=== PATIENT | male | born 1955 | race Two or more races ===

== ENCOUNTER 2021-07-28 11:51 | Emergency (ER) | payer OTHER ==
[~2021-07-28] VITALS: Ht 162.6 cm; Wt 63.5 kg
[2021-07-28 12:04] VITALS: BP 226/144
[2021-07-28] MEDS ORDERED: cloNIDine HCL 0.1 MG TAB PO ONE ×2 (12:15→15:15)
[2021-07-28 13:41] LABS: Basophils # (auto) 0.1 10 ^3/uL (0-0.2); Basophils % (auto) 0.6 % (0.0-2.0); Eosinophils # (auto) 0.1 10 ^3/uL (0-0.8); Eosinophils % (auto) 0.9 % (0.0-7.0); Hematocrit 43.5 % (41.0-53.0); Hemoglobin 15.1 g/dL (13.5-17.5); Lymphocytes # (auto) 1.2 10 ^3/uL (0.4-5.4); Lymphocytes % (auto) 10.6 % (10.0-50.0); Mean Corpuscular Hemoglobin 32.2 pg (28.0-32.0); Mean Corpuscular Hgb Conc. 34.7 g/dL (32.0-36.0); Mean Corpuscular Volume 92.8 fL (80.0-100.0); Monocytes # (auto) 0.5 10 ^3/uL (0-1.3); Monocytes % (auto) 4.7 % (0.0-12.0); Neutrophils # (auto) 9.3 10 ^3/uL (1.6-8.6); Neutrophils % (auto) 83.2 % (37.0-80.0); Red Blood Cells 4.68 10^6/uL (4.5-5.90); Red Cell Distribution Width 14.3 % (11.8-14.3); White Blood Cell 11.2 10^3/uL (4.4-10.8)
[2021-07-28 14:01] LABS: Albumin 3.9 g/dL (3.4-5.0); Anion Gap 9 (5-15); Blood Urea Nitrogen 16 mg/dL (7-18); Calcium 9.2 mg/dL (8.5-10.1); Carbon Dioxide 25 mmol/L (21-32); Chloride 105 mmol/L (98-107); Glucose 113 mg/dL (74-106); Potassium 3.5 mmol/L (3.5-5.1); Sodium 139 mmol/L (136-145)
[2021-07-28 14:06] LABS: Alanine Aminotransferase 25 U/L (16-61); Alkaline Phosphatase 102 U/L (45-117); Aspartate Aminotransferase 18 U/L (15-37); BUN/Creatinine Ratio 12.1; Bilirubin, Total 0.5 mg/dL (0.2-1.0); GFR African American 69 mL/min; GFR Non-African American 57 mL/min; Total Protein 7.8 g/dL (6.4-8.2)
== END 2021-07-28 15:18 | disposition home or self-care (01) ==
LOC: ER 11:51
DX: I16.0 Hypertensive urgency (principal); F17.210 Nicotine dependence, cigarettes, uncomplicated; Z88.0 Allergy status to penicillin
CPT/HCPCS: 36415; 80053; 84484; 85025; 93005

== ENCOUNTER 2025-08-06 10:09 | Emergency (ER) | payer MEDICARE, OTHER ==
[~2025-08-06] VITALS: Ht 167.6 cm; Wt 60.3 kg
--- NOTE | 2025-08-06 10:45 | ECG ---
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
[2025-08-06 10:53] LABS: Hematocrit 44.0 % (41.0-53.0); Hemoglobin 15.6 g/dL (13.5-17.5); Mean Corpuscular Hemoglobin 31.9 pg (28.0-32.0); Mean Corpuscular Volume 90.4 fL (80.0-100.0); Nucleated Red Blood Cells % 0.2 %
[2025-08-06 10:59] LABS: Chloride 104 mmol/L (98-107); Potassium 3.6 mmol/L (3.5-5.1); Sodium 143 mmol/L (136-145)
[2025-08-06 11:00] LABS: Anion Gap 12 (5-15); Calcium 9.8 mg/dL (8.7-10.4); Carbon Dioxide 27 mmol/L (20-31)
[2025-08-06 11:05] LABS: BUN/Creatinine Ratio 10.2 (10.0-20.0); Blood Urea Nitrogen 12 mg/dL (9-23)
[2025-08-06 11:07] LABS: Glucose 107 mg/dL (74-106)
--- NOTE | 2025-08-06 11:16 | DVH ---
EXAM: CT HEAD WITHOUT CONTRAST HISTORY: tia, headache COMPARISON: No comparison studies are available. TECHNIQUE: Noncontrast axial CT images of the head were performed. Sagittal and coronal reformatted i mages were obtained. This CT exam was performed using 1 or more of the following dose reduction techn iques: Automated exposure control, adjustment of the mA and/or kv according to patient size, or the u se of iterative reconstruction techniques. Radiation Dose: CTDI volume is 54.72 mGy. Dose-length product is 967.22 mGy*cm FINDINGS: There is a 7 mm ovoid hyperdense lesion of the left frontal lobe inferomedially (image 27, series 2). No intracranial masses, midline shift, hydrocephalus, or evidence of acute large vessel infarct. Th ere is mild global brain atrophy. There is mild decreased attenuation in the periventricular white m atter. There is a mucous retention cyst in the right maxillary sinus. The bilateral mastoid air cells and middle ear spaces are clear. There may be old bilateral nasal bone fractures. No cranial fractur e or scalp edema. IMPRESSION: 1. 7 mm ovoid hyperdense lesion of the inferomedial aspect of the left frontal lobe likely due to acu te intra-axial hemorrhage, less likely atypical calcification, mass, or aneurysm. Appropriate follow- up may include pre and postcontrast MRI of the brain versus short interval follow-up noncontrast CT s can of the head to establish short term stability. Comparison with any previous CT scan of the head would also be helpful if available. 2. Mild global brain atrophy and chronic ischemic changes without evidence of acute large vessel infa rct. 3. Mild right maxillary sinus disease. Critical findings Critical Result: Acute intracranial hemorrhage Findings discussed with Dr. Grady at 08/06/2025 01:10 PM CDT, and acknowledged receipt and understa nding of the findings.
--- NOTE | 2025-08-06 11:33 | ED.PDOC ---
HPI (NEURO) HPI Comments 70 year old male with PMHx HTN presents to the ED with a chief complaint of LT sided weakness onset 08/04/25. Patient states he began experiencing Lt sided facial drooping 2 days ago around 05:00. Patient's spouse states patient woke up, she noticed Lt sided facial drooping. Patient has no further complaints. Denies chest pain, shortness of breath, dizziness, headache, fever, chills, nausea, vomiting, weakness, numbness/tingling. No other symptoms or modifying factors present at this time. Chief Complaint: Left Sided Weakness Time Seen by MD: 11:15 Reviewed Notes: Medications, Allergies Information Source: Patient, Spouse Mode of Arrival: Ambulatory Severity: Moderate Timing: Days Duration: Since onset Prehospital treatment: None Associated Signs and Symptoms: Other (LT sided facial drooping) Past Medical History PAST MEDICAL HISTORY: HTN Surgical History: Denies all surgeries Family History Family History: Reviewed,noncontributory to illness Social History Smoker: Cigarettes Alcohol: Occasionally Drugs: Denies Drug Use Lives In: Home Constitutional: denies: chills, diaphoresis, fatigue, fever, malaise, sweats, weakness, others EENTM: denies: blurred vision, double vision, ear bleeding, ear discharge, ear drainage, ear pain, ear ringing, eye pain, eye redness, hearing loss, mouth pain, mouth swelling, nasal discharge, nose bleeding, nose congestion, nose pain, photophobia, tearing, throat pain, throat swelling, voice changes, others Respiratory: denies: cough, hemoptysis, orthopnea, SOB at rest, shortness of breath, SOB with excertion, stridor, wheezing, others Cardiovascular: denies: chest pain, dizzy spells, diaphoresis, Dyspnea on exertion, edema, irregular heart beat, left arm pain, lightheadedness, palpitations, PND, syncope, others Gastrointestinal: denies: abdomen distended, abdominal pain, blood streaked bowels, constipated, diarrhea, dysphagia, difficulty swallowing, hematemesis, melena, nausea, poor appetite, poor fluid intake, rectal bleeding, rectal pain, vomiting, others Genitourinary: denies: burning, dysuria, flank pain, frequency, hematuria, incontinence, penile discharge, penile sore, pain, testicle pain, testicle swelling, urgency, others Neurological: reports: others (Lt sided facial drooping); denies: dizziness, fainting, headache, left sided numbness, left sided weakness, numbness, paresthesia, pre-existing deficit, right sided numbness, right sided weakness, seizure, speech problems, tingling, tremors, weakness Musculoskeletal: denies: back pain, gout, joint pain, joint swelling, muscle pain, muscle stiffness, neck pain, others Integumetry: denies: bruises, change in color, change in hair/nails, dryness, laceration, lesions, lumps, rash, wounds, others Allergic/Immunocompromised: denies: Difficulty Healing, Frequent Infections, Hives, Itching, others Hematologic/Lymphatic: denies: anemia, blood clots, easy bleeding, easy bruising, swollen glands, others Endocrine: denies: excessive hunger, excessive sweating, excessive thirst, excessive urination, flushing, intolerance to cold, intolerance to heat, unexplained weight gain, unexplained weight loss, others Psychiatric: denies: anxiety, bipolar disorder, depression, hopeless, panic disorder, schizophrenia, sleepless, suicidal, others All Other Systems: Reviewed and Negative Physical Exam General Appearance: Moderate Distress HEENT: Normal ENT Inspection, Pharynx Normal, TMs Normal Neck: Full Range of Motion, Non-Tender, Normal, Normal Inspection Respiratory: Chest Non-Tender, Lungs Clear, No Accessory Muscle Use, No Respiratory Distress, Normal Breath Sounds Cardiovascular: No Edema, No JVD, No Murmur, No Gallop, Normal Peripheral Pulses, Regular Rate/Rhythm Breast Exam: Deferred Gastrointestinal: No Organomegaly, Non Tender, No Pulsatile Mass, Normal Bowel Sounds, Soft Genitalia: Deferred Pelvic: Deferred Rectal: Deferred Extremities: No calf tenderness, Normal capillary refill, Normal inspection, Normal range of motion, Non-tender, No pedal edema Musculoskeletal : Apperance: Normal Neurologic: Facial Droop Cerebellar Function: Normal Reflexes: Normal Skin: Dry, Normal Color, Warm Peripheral Pulses: 3+ Radial (R), 3+ Radial (L) Lymphatic: No Adenopathy EKG EKG : Pulse Rate (adult): 97 Cardiac Rhythm: NSR Was a procedure done? Was a procedure done?: No Differential Diagnosis (SZ) Seizure: Psychogenic Seizure, Closed Head Injury, CVA/TIA X-Ray, Labs, Meds, VS Vital Signs Date Time Temp Pulse Resp B/P (MAP) Pulse Ox O2 Delivery O2 Flow Rate FiO2 08/06/25 12:33 79 10 95 Room Air* 0 21 08/06/25 12:25 97.3 79 10 125/86 (99) 95 97.3 08/06/25 11:33 97 08/06/25 10:25 97 08/06/25 10:11 98.9 98 18 143/92 97 98.9 Lab Test 08/06/25 13:20 08/06/25 10:29 08/06/25 10:24 Range/Units Urine Color Pending Urine Clarity Pending Urine pH Pending Urine Specific [place] Pending Urine Protein Pending Urine Ketones Pending Urine Blood Pending Urine Nitrite Pending Urine Bilirubin Pending Urine Urobilinogen Pending Urine Leukocyte Esterase Pending Urine RBC Pending Urine Microscopic WBC Pending Urine Squamous Epithelial Cells Pending Urine Bacteria Pending Urine Glucose Pending White Blood Count 8.4 4.4-10.8 10^3/uL Red Blood Count 4.87 4.5-5.90 10^6/uL Hemoglobin 15.6 13.5-17.5 g/dL Hematocrit 44.0 41.0-53.0 % Mean Corpuscular Volume 90.4 80.0-100.0 fL Mean Corpuscular Hemoglobin 31.9 28.0-32.0 pg Mean Corpuscular Hemoglobin Concent 35.3 32.0-36.0 g/dL Red Cell Distribution Width 14.0 11.8-14.3 % Platelet Count 273 140-450 10^3/uL Mean Platelet Volume 8.0 6.9-10.8 fL Neutrophils (%) (Auto) 75.1 37.0-80.0 % Lymphocytes (%) (Auto) 16.0 10.0-50.0 % Monocytes (%) (Auto) 6.2 0.0-12.0 % Eosinophils (%) (Auto) 2.0 0.0-7.0 % Basophils (%) (Auto) 0.7 0.0-2.0 % Neutrophils # (Auto) 6.3 1.6-8.6 10 ^3/uL Lymphocytes # (Auto) 1.3 0.4-5.4 10 ^3/uL Monocytes # (Auto) 0.5 0-1.3 10 ^3/uL Eosinophils # (Auto) 0.2 0-0.8 10 ^3/uL Basophils # (Auto) 0.1 0-0.2 10 ^3/uL Nucleated Red Blood Cells 0.2 % Sodium Level 143 136-145 mmol/L Potassium Level 3.6 3.5-5.1 mmol/L Chloride Level 104 98-107 mmol/L Carbon Dioxide Level 27 20-31 mmol/L Anion Gap 12 5-15 Blood Urea Nitrogen 12 9-23 mg/dL Creatinine 1.18 0.700-1.30 mg/dL Glomerular Filtration Rate Calc 66 >90 mL/min BUN/Creatinine Ratio 10.2 10.0-20.0 Serum Glucose 107 H 74-106 mg/dL Calcium Level 9.8 8.7-10.4 mg/dL Troponin I High Sensitivity 3 L </=54 ng/L POC Glucose 104 70-106 mg/dl [place] [address] Ph: [phone] DIAGNOSTIC IMAGING Diagnostic Imaging Report : [id number] Signed PATIENT: MAREN LEWIS ACCT: [id number] UNIT: [id number] : 1955 LOC: ER ROOM / BED: / AGE / SEX: 70 / M ADM STATUS: REG ER SERVICE 1015 ORDERING PHYSICIAN: ERICK EATON MD PROCEDURE(s): HWOCT - HEAD WITHOUT CONTRAST REASON: tia ORDER NUMBER(s): [id number], ACCESSION NUMBER(s): [id number] EXAM: CT HEAD WITHOUT CONTRAST HISTORY: tia, headache COMPARISON: No comparison studies are available. TECHNIQUE: Noncontrast axial CT images of the head were performed. Sagittal and coronal reformatted images were obtained. This CT exam was performed using 1 or more of the following dose reduction techniques: Automated exposure control, adjustment of the mA and/or kv according to patient size, or the use of iterative reconstruction techniques. Radiation Dose: CTDI volume is 54.72 mGy. Dose-length product is 967.22 mGy*cm FINDINGS: There is a 7 mm ovoid hyperdense lesion of the left frontal lobe inferomedially (image 27, series 2). No intracranial masses, midline shift, hydrocephalus, or evidence of acute large vessel infarct. There is mild global brain atrophy. There is mild decreased attenuation in the periventricular white matter. There is a mucous retention cyst in the right maxillary sinus. The bilateral mastoid air cells and middle ear spaces are clear. There may be old bilateral nasal bone fractures. No cranial fracture or scalp edema. IMPRESSION: 1. 7 mm ovoid hyperdense lesion of the inferomedial aspect of the left frontal lobe likely due to acute intra-axial hemorrhage, less likely atypical calcification, mass, or aneurysm. Appropriate follow-up may include pre and postcontrast MRI of the brain versus short interval follow-up noncontrast CT scan of the head to establish short term stability. Comparison with any previous CT scan of the head would also be helpful if available. 2. Mild global brain atrophy and chronic ischemic changes without evidence of acute large vessel infarct. 3. Mild right maxillary sinus disease. Critical findings Critical Result: Acute intracranial hemorrhage Findings discussed with Dr. Eaton at 08/06/2025 01:10 PM CDT, and acknowledged receipt and understanding of the findings. ATED BY: LAUREN CHAO MD DICTATED DATE/TIME: 08/06/25 1114 SIGNED BY: LAUREN CHAO MD SIGNED DATE/TIME: 08/06/25 1114 CC: Patient alert. Vitals stable. Complaining of facial droop. Moving all extremities. CT of the head reviewed does show possible chronic changes could be small hemorrhage. Transferred for higher level of care. Explained to the patient. Continue monitoring. Time of 1ST Reevaluation: 11:45 Reevaluation 1ST: Unchanged Patient Education/Counseling: Diagnosis, Treatment, Prognosis Family Education/Counseling: Diagnosis, Treatment, Prognosis Departure 1 Departure Time of Disposition: 13:37 Impression: Primary Impression: Intracranial hemorrhage Disposition: 02 SHORT TERM HOSPITAL Admit to: Med Surg Condition: Guarded Critical Care Note Critical Care Time?: Yes (90 min-critical care time only) Stability Stability form required: No Heart Score Heart Score: Heart Score Response (Comments) Value History N/A 0 EKG N/A 0 Age N/A 0 Risk Factors N/A 0 Troponin N/A 0 Total 0 I personally scribed for ERICK EATON MD ([facility] on 08/06/25 at 11:33. Electronically submitted by Jeimy Williamson ([email or web address]). ERICK EATON MD Aug 06, 2025 11:33
[2025-08-06 12:33] VITALS: PULSE 79; RESP 10; O2SAT 95
[2025-08-06 13:35] VITALS: BP 135/81; PULSE 86; RESP 11; TEMP 98.5; O2SAT 95
[2025-08-06 13:36] LABS: Urine Protein, UAD Negative (Negative)
== END 2025-08-06 13:39 | disposition short-term general hospital (02) ==
LOC: ER 10:09
DX: I62.9 Nontraumatic intracranial hemorrhage, unspecified (principal); I10 Essential (primary) hypertension; F17.210 Nicotine dependence, cigarettes, uncomplicated
CPT/HCPCS: 36415; 70450; 80048; 81001; 82947; 82962; 84484; 85025; 93005; 99291; 99292